=== PATIENT | male | born 1940 | race Caucasian/White ===

== ENCOUNTER → 2017-02-12 | Day surgery (SDC) | payer MEDICARE ==
--- NOTE | ~2017-02-12 | O ---
[place], [place] OPERATIVE NOTE NAME: SILVERIO ENAMORADO UNIT #: [id number] ROOM: DOCTOR: [facility]JE[facility] B[facility]TH[facility] [birth year] DOS: INDICATIONS: A 76-year-old patient who presented with status post radical neck dissection. A PET scan showing abnormality on the colon. ALLERGIES: No known medication. FAMILY HISTORY: Noncontributory. PAST SURGICAL HISTORY: Neck radical, nose melanoma. PAST MEDICAL HISTORY: Non-Hodgkin lymphoma and parotid carcinoma. SOCIAL HISTORY: Nonsmoker. Social alcohol consumer. PROCEDURE: Today's procedure part of investigation is colonoscopy plus polypectomy plus biopsy. PREMEDICATIONS: Versed and Diprivan. SCOPE: Olympus forward viewing colonoscope 10L video. REPORT: After putting the patient in left lateral position and after application of lubricant to the scope, scope was introduced; thereafter, under direct visualization, I advanced through the length of colon without difficulty. A 1.5 cm polypoid lesion in sigmoid colon with snare polypectomized, very large glandular polypoid lesion at splenic flexure was polypectomized. Sample recovered. Scope was negotiated throughout the length of colon. Numerous other small polyps present; however, there is a large infiltrated mass at hepatic flexure. This was photographed, biopsied. I trust this is the area that was showing on PET scan to be positive. Multiple biopsies obtained, base of the cecum explored, appendiceal orifice identified, and ileocecal valve was defined. The patient extubated and tolerated the procedure well. IMPRESSION: Infiltrating mass at hepatic flexure. Multiple other colonic polyps throughout the length of colon. One large glandular polyp from splenic flexure has been polypectomized. Another small polypoid lesion in sigmoid colon with a snare polypectomized. PLAN AND DISCUSSION: Point of concern between all the polyps present is the infiltrated mass at the hepatic flexure. Condition that this man has and status of parotid carcinoma, head and neck radical dissection and issues on hand, we have to have discussion with the patient and family regarding the aggressive degree of approach for hepatic flexure resection if necessary bearing in mind that this patient has a nasal non-Hodgkin lymphoma, melanoma, parotid carcinoma and radical neck. Thank you very much indeed. [place], [place] OPERATIVE NOTE NAME: SILVERIO ENAMORADO UNIT #: [id number] ROOM: DOCTOR: SABAS ROSE,SHANA BIRTHDATE: [birth year] SHANA OBREGON MD CM:OPRECORD:OPERATIVE NOTE [id number] SHANA OBREGON MD 02/13/17 0032 interface
[2017-02-12 11:29] VITALS: BP 95/68
[2017-02-12 12:15] VITALS: BP 98/62
[2017-02-12 12:30] VITALS: BP 111/63
[2017-02-12 12:45] VITALS: BP 121/72
== END | disposition home or self-care (01) ==
LOC: SDC 02-10 13:15
DX: D12.3 Benign neoplasm of transverse colon (principal); D12.5 Benign neoplasm of sigmoid colon; K21.9 Gastro-esophageal reflux disease without esophagitis; Z85.89 Personal history of malignant neoplasm of other organs and systems; Z85.820 Personal history of malignant melanoma of skin